=== PATIENT | male | born 1950 | race Caucasian/White ===

== ENCOUNTER → 2016-11-18 | Outpatient (CLI) | payer OTHER ==
[~2016-11-18] MED LIST: AMARYL PO; COREG12.5 M1; ESTER C PO; FLOMAX0.4 M1; JANUVIA100 MG PO; LEVEMIR FL100 UNIT/1 SUBQ; NIACIN500 M3; ZESTRIL2.5 MG PO; ZESTRIL5 MG PO
[2016-11-18 14:02] LABS: BUN/CREATININE RATIO 17.77; CALCIUM SERUM 9.6 mg/dL (8.4-10.2); CREATININE SERUM 0.9 mg/dL (0.6-1.4); GLOM FILT RATE Estimated 87.5 mL/min (>60); POTASSIUM 4.7 mmol/L (3.5-5.1)
== END | disposition home or self-care (01) ==
LOC: CAMB 12:01 → EDSTATUS 14:00
PROVIDERS: Surgery
DX: Z01.812 Encounter for preprocedural laboratory examination (principal); K40.90 Unilateral inguinal hernia, without obstruction or gangrene, not specified as recurrent
CPT/HCPCS: 36415; 80048

== ENCOUNTER → 2016-12-24 | Outpatient (CLI) | payer OTHER ==
[2016-12-24 15:16] LABS: CALCIUM SERUM 9.4 mg/dL (8.4-10.2); POTASSIUM 4.7 mmol/L (3.5-5.1)
== END | disposition home or self-care (01) ==
LOC: CAMB 11:13
PROVIDERS: Surgery
DX: Z01.812 Encounter for preprocedural laboratory examination (principal)
CPT/HCPCS: 36415; 80048

== ENCOUNTER 2016-12-30 05:26 | Observation (INO) | payer OTHER ==
[~2016-12-30] VITALS: Ht 182.9 cm; Wt 95.3 kg
--- NOTE | ~2016-12-30 | CR72 ---
[facility] A Service of [facility] & [facility] RADIOLOGY TEXT RESULTS PATIENT: ELVIRA GARSIA LOCATION: [place] [address] : [birth year] UNIT #: [id number] AGE: [address]: Geoffrey Valente MD SEX: M ORDER DR: [id number] [facility] [address] [place], [place] [address] [id number] I MR#: [id number] Acc #: [id number] NAME: ELVIRA GARSIA. : 1950 SEX: M STUDY DATE/TIME: 12/30/2016 20:18 UNIT: [facility] ROOM: [facility] STUDY DESCRIPTION: CR Chest Single View Portable Attending Physician: Geoffrey Valente M.D. Ordering Physician: Zulema Townsend M.D. Primary Care Physician: Maday Ibanez A.P.R.N. MEDICAL IMAGING REPORT This report is preliminary unless electronic signature is present EXAM Portable chest, 12/30/2016. HISTORY 66-year-old male with cough and congestion beginning today. Essential hypertension. COMPARISON Chest, 12/11/2016. FINDINGS Frontal chest demonstrates clear lungs. No pleural effusion or pneumothorax. Heart size and mediastinum are normal. Pulmonary vasculature normal. Left-sided AICD complex. IMPRESSION No acute cardiopulmonary findings. No change from 12/11/2016. Dictated by... Washington Ponce M.D. THIS IS AN ELECTRONICALLY VERIFIED REPORT Washington Ponce M.D. at 12/31/2016 5:10 PM JOHNNY/mary TD: 12/31/2016 09:44 JOB #: [id number] MEDICAL IMAGING REPORT Page 1 of 1 COPY
--- NOTE | ~2016-12-30 | OR ---
Unit #: [id number] #: [id number] Patient: ELVIRA GARSIA [id number] [address] [address] [id number] I MR#: [id number] NAME: ELVIRA GARSIA. ROOM: 562 Date of Procedure: 12/30/2016 Admission Date: 12/30/2016 Surgeon: Geoffrey Valente M.D. : 1950 Attending Physician: Geoffrey Valente M.D. Primary Care Physician: Maday Ibanez A.P.R.N. OPERATIVE REPORT PREOPERATIVE DIAGNOSIS Recurrent right inguinal hernia. POSTOPERATIVE DIAGNOSIS Recurrent right incarcerated indirect inguinal hernia. PROCEDURE PERFORMED Laparoscopic preperitoneal inguinal hernia repair of recurrent right incarcerated inguinal hernia. MANAGER HVAC None. ANESTHESIA General. ESTIMATED BLOOD LOSS Minimal. IV FLUIDS 800 crystalloid. COMPLICATIONS None. INDICATIONS FOR PROCEDURE The patient is a 66-year-old gentleman, who presents with a bulge in his right groin. He is status post right inguinal hernia repair with plug and patch technique. DESCRIPTION OF PROCEDURE The patient was taken to the operating theater and placed in supine position. General anesthesia was induced. The abdomen was prepped and draped. Infraumbilical incision was then made. A small incision was made in the anterior sheath. I created the preperitoneal space with blunt dissection. A Veress needle was placed intra-abdominally. The abdomen was insufflated to 15 mmHg with CO2. Under direct vision, I placed a 5-mm port. The patient was placed in Trendelenburg. I identified a right-sided indirect inguinal hernia. This was reduced with gentle external palpation. I then released the pneumoperitoneum. Using the AutoSuture balloon dissection system, I created the preperitoneal space on the right side only. I then placed two 5-mm ports in the midline. I Unit #: [id number] #: [id number] Patient: ELVIRA GARSIA dissected the lateral space. I identified the cord. The cord was then skeletonized and the hernia sac from the cord contents. There was adhesions to the previously placed plug. These were taken down. I then transected the hernia sac and ligated this with an Endoloop. I identified Shar ligament. I then placed a large 3DMax mesh into position. This was anteriolized and covered the direct and indirect spaces nicely. This was secured with the tacking device to Shar ligament as well as the lateral anterior musculature. Hemostasis was adequate. I then released the pneumopreperitoneum with care taken to avoid the peritoneum sliding posterior to the mesh. The ports were removed. The fascia was closed with 0 Vicryl and skin with 4-0 Vicryl. The patient tolerated the procedure well and sent to recovery room in good condition. Dictated by... Narcisa Milan/dimitri TD: 12/30/2016 15:47 JOB #: [id number] OPERATIVE REPORT Page 1 of 1 X Geoffrey Valente MD X PROCEDURE OPERATIVE NOTE
--- NOTE | ~2016-12-30 | CO ---
Unit #: [id number] #: [id number] Patient: ELVIRA GARSIA [id number] [address] [place], [place] [address] [id number] I MR#: [id number] NAME: ELVIRA GARSIA. ROOM: 562 Age: 66 Sex: M Admission Date: 12/30/2016 : 1950 Attending Physician: Geoffrey Valente M.D. Primary Care Physician: Maday Ibanez A.P.R.N. Consultation Date: 12/30/2016 CONSULTATION REPORT This patient is followed typically by Dr. Gregory Templeton. REASON FOR CONSULTATION Near syncope and low blood pressure. HISTORY OF PRESENT ILLNESS This is a very pleasant, 66-year-old, male, who was here today for scheduled right inguinal hernia repair per Dr. Valente. He has a past medical history of hypertension, hyperlipidemia, nonischemic cardiomyopathy, diabetes mellitus, paroxysmal atrial fibrillation, not on anticoagulation, status post Medtronic AICD pacemaker in 2011 and this is a biventricular pacemaker. He also has a chronic left bundle-branch block. We were asked to see the patient today secondary to post ambulation. He became extremely lightheaded and knees buckled with low blood pressure. The patient did not lose consciousness. He denies any complaints of chest pain, shortness of breath, or palpitations preceding this episode. It is noted he does have a large right groin hematoma. It appears to be extending upward at this time. The patient thus far has responded well to IV fluid boluses. His most recent hemoglobin was noted to be about 12. Dr. Valente has been notified of his current hematoma and is planning to take him back down for surgical reexploration today. PAST MEDICAL HISTORY 1. Hypertension. 2. Hyperlipidemia. 3. Diabetes mellitus type 2. 4. Paroxysmal atrial fibrillation, on anticoagulation. 5. Nonischemic cardiomyopathy. 6. Cardiac catheterization in 2013 showed no obstructive coronary artery disease. 7. In 09/2016, 2D echocardiogram showed EF of 45%. 8. Recent pacemaker battery replacement. 9. Chronic left bundle-branch block. 10. Nuclear med cardiac stress in 09/2016 showed no significant stress-induced ischemia, low intensity fixed defect at the apical cap. PAST SURGICAL HISTORY 1. History of an inguinal hernia repair. 2. History of AICD permanent pacemaker placement, Medtronic device. 3. Vasectomy. 4. History of tonsillectomy. FAMILY HISTORY Unit #: [id number] #: [id number] Patient: ELVIRA GARSIA Positive for hypertension in his mother. Otherwise, no known coronary artery disease. SOCIAL HISTORY The patient lives with his . He denies illicit drugs. He is a nonsmoker. He denies alcohol. ALLERGIES Sulfa, metformin, and Victoza. HOME MEDICATIONS 1. Carvedilol 12.5 mg p.o. b.i.d. 2. Amaryl 4 mg p.o. b.i.d. 3. Januvia 100 mg p.o. daily. 4. Flomax 0.4 mg nightly. 5. Ascorbic acid 500 mg p.o. daily. 6. Niacin 500 mg p.o. daily. 7. Zestril 5 mg p.o. nightly. REVIEW OF SYSTEMS A 12-point review of systems was conducted and is negative other than what was stated above in the HPI. PHYSICAL EXAMINATION CONSTITUTIONAL: This is a pleasant 66-year-old, male, who is status post right groin inguinal hernia repair. GENERAL: He is in no acute distress. HEENT: Head is atraumatic and normocephalic. Pupils are equal and round. NECK: Trachea is midline. No lymphadenopathy. No JVD. Carotid upstrokes are normal. CARDIAC: Regular rate and rhythm. Normal S1 and S2. No murmurs, gallops, or rubs. LUNGS: Clear to auscultation. No adventitious breath sounds. No rales. No rhonchi. No wheezes. ABDOMEN: Tender. Laparoscopic sites are present. Some bruising is noted. Firm on the right side. EXTREMITIES: Pulses are palpable. No clubbing, cyanosis, or edema. SKIN: Right groin has a significant hematoma, which appears to be extending upward, toward the abdominal area. NEUROLOGIC: He is awake, alert, and oriented. He follows command equally. He moves all extremities appropriately. DIAGNOSTIC STUDIES EKG shows paced rhythm. Imaging: No imaging at present for review. Hemoglobin 12.7, hematocrit 38.1, WBC 15.5, and platelet count 199. IMPRESSION 1. Near syncopal episode, questionable vasovagal versus volume depletion, secondary to bleeding. 2. Right groin large hematoma, status post inguinal hernia repair today. 3. History of nonischemic cardiomyopathy. 4. AICD permanent pacemaker Medtronic device, placed in 2011, recent battery and device replacement about 3 weeks ago at [facility]. 5. Normal Cardiolite stress test in 09/2016. 6. Chronic left bundle-branch block. Unit #: [id number] #: [id number] Patient: ELVIRA GARSIA 7. Normal coronary per H and P as the patient had cardiac cath in [place] in 2013. 8. In 09/2016, 2D echocardiogram showed an LVEF of 45%. PLAN We were asked to see the patient secondary to near syncopal episode and hypotension. The patient was up ambulating today and developed near syncope with weakness of his legs. Blood pressure was found to be as low as 79/44. It is notable he does have a large hematoma in the right groin, status post right inguinal hernia repair surgery today. He has thus far been given IV fluid boluses and has responded well. His current blood pressures up to 101/70. Stat hemoglobin and hematocrit were ordered and hemoglobin is noted to be stable at this time. At present, the patient's blood pressure medicines, which include carvedilol and lisinopril will be placed on hold. Dr. Valente has been notified of the patient's large hematoma by the nursing staff, and he is opted to take the patient back down for reexploration of his right groin site. The patient's EKG appears normal. He is in a paced rhythm. He denies any complaints of chest pain, palpitations, or syncope preceding the episode. We would recommend gentle fluids to keep systolic greater than 60. We will hold off on blood pressure medications for now. The patient is most likely bleeding and again is currently going back to surgery for re-exploration of the groin site. We will monitor for signs and symptoms of fluid overload. This was discussed with the patient and and they were agreeable. Further recommendations pending the outcome of the patient's re-exploration today. We will continue to monitor hemoglobin. Dictated by... Reta Tobar/modl TD: 12/31/2016 00:49 JOB #: [id number] CONSULTATION REPORT Page 1 of 1 X Karen Schuler APRN CONSULTATION REPORT
--- NOTE | ~2016-12-30 | OR ---
Unit #: [id number] #: [id number] Patient: ELVIRA GARSIA [id number] [address] [place], [place] [address] [id number] MR#: [id number] NAME: ELVIRA GARSIA. ROOM: 562 Date of Procedure: 12/30/2016 Admission Date: 12/30/2016 Surgeon: Geoffrey Valente M.D. : 1950 Attending Physician: Geoffrey Valente M.D. Primary Care Physician: Maday Ibanez A.P.R.N. OPERATIVE REPORT PREOPERATIVE DIAGNOSIS Abdominal wall hematoma. POSTOPERATIVE DIAGNOSIS Rectus sheath hematoma. PROCEDURES PERFORMED 1. Diagnostic laparoscopy. 2. Evacuation of rectus sheath hematoma. 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 ANESTHESIA General anesthesia. ESTIMATED BLOOD LOSS Minimal. IV FLUIDS 600 crystalloid. COMPLICATIONS None. INDICATIONS FOR PROCEDURE The patient is a 66-year-old gentleman, who is status post laparoscopic preperitoneal right inguinal hernia repair. He was noticed to have hypotension postoperatively and swelling of his right groin. On examination, this was felt to be a hematoma and I was concerned about this hematoma decompressing into the abdominal space and having active ongoing bleeding. He was thus resuscitated, presents to the operating room for evaluation. DESCRIPTION OF PROCEDURE The patient was taken to the operating theater and placed in supine position. General anesthesia was induced. Exam was prepped and draped. A 5-mm Optiview trocar was placed in the left upper quadrant without difficulty. The patient was placed in Trendelenburg. I identified what appeared to be a bilateral rectus sheath hematoma in the preperitoneal space. There was no active bleeding internally and this had not decompressed within the abdominal cavity. Thus, I made a small incision Unit #: [id number] #: [id number] Patient: ELVIRA GARSAI connecting the two 5-mm port sites. I got into the preperitoneal space. I was able to identify the mesh, which was in good position. I attempted to evacuate some of the hematoma, although this was difficult due to its diffuse nature. I did not see any active bleeding. I irrigated thoroughly with normal saline, closed the fascia with 0 Vicryl and skin with austin. The patient tolerated the procedure well and sent to recovery room in good condition. Dictated by... Narcisa Milan/dimitri TD: 12/30/2016 16:04 JOB #: [id number] OPERATIVE REPORT Page 1 of 1 X Geoffrey Valente MD X PROCEDURE OPERATIVE NOTE
--- NOTE | ~2016-12-30 | EKG ---
PATIENT: ELVIRA GARSIA UNIT #: [id number] Ventricular Rate: 60 BPM Atrial Rate: 60 BPM P-R Interval: 80 ms QRS Duration: 176 ms Q-T Interval: 488 ms QTC Calculation(Bezet): 488 ms P Chelsea: 74 degrees Calculated R Chelsea: -148 degrees Calculated T Chelsea: 69 degrees Diagnosis Line: AV sequential or dual chamber electronic pacemaker Diagnosis Line: No previous ECGs available Diagnosis Line: Confirmed by PASCUAL BARRERA MD ([id number]) on Diagnosis Line: 12/30/2016 1:29:09 PM INTERPRETING MD: BRUCE TOM
--- NOTE | ~2016-12-30 | CO ---
Unit #: [id number] #: [id number] Patient: ELVIRA GARSIA [id number] [address] [place], [place] [address] [id number] I MR#: [id number] NAME: ELVIRA GARSIA. ROOM: 43853 Age: 66 Sex: M Admission Date: 12/30/2016 : 1950 Attending Physician: Geoffrey Valente M.D. Primary Care Physician: Maday Ibanez A.P.R.N. Consultation Date: 12/30/2016 CONSULTATION REPORT REASON FOR CONSULTATION Diabetes. HISTORY OF PRESENT ILLNESS The patient is a 66-year-old male with past medical history of hypertension, hyperlipidemia, atrial fibrillation, left bundle branch block, diabetes, BPH, obstructive sleep apnea, who was admitted by Dr. Valente for elective right inguinal hernia repair. The patient states that he has diabetes that is managed by his primary care physician. He is on Januvia and glimepiride which he has been taking as prescribed. He states that his blood sugars are typically less than 200. Regarding the patient's other chronic medical conditions, he is status post pacemaker placement and has a history of atrial fibrillation. He also reports a history of left bundle branch block. He is followed by Dr. Templeton as an outpatient. He states that he did have obstructive sleep apnea in the past and was on CPAP; however, he lost about 80 pounds back in 2013 and is no longer on CPAP. Postoperatively, the patient has developed a hematoma in the right groin area. He denies any current chest pain. No difficulty breathing. He states that he was recently treated for "bronchitis" with an unknown antibiotic. He still has a persistent cough, but it has gotten better. He denies any vomiting or diarrhea. No urinary symptoms. Also of note, the patient's blood pressure dropped to 78/40 postoperatively. He has received A 500 mL normal saline bolus and blood pressure is most recently 101/54. Cardiology was also consulted. He is returning to the operating room due to development of postoperative hematoma. PAST MEDICAL HISTORY 1. Admission to a hospital in [place] in 2011 for hernia repair. 2. Diabetes. 3. Atrial fibrillation, status post pacemaker placement, not on chronic anticoagulation followed by Dr. Templeton. 4. Left bundle branch block. 5. Hypertension. 6. Hyperlipidemia. 7. BPH. 8. Obstructive sleep apnea, previously on CPAP. PAST SURGICAL HISTORY 1. Cardiac catheterization in 2002. 2. Hernia repair. Unit #: [id number] #: [id number] Patient: ELVIRA GARSIA SOCIAL HISTORY The patient lives with his . There is no tobacco or alcohol use. FAMILY HISTORY Notable for his mother having hypertension. ALLERGIES Allergies will need to be reviewed and verified. HOME MEDICATIONS 1. Glimepiride. 2. Januvia. 3. Flomax. 4. Ascorbic acid. 5. Niacin. 6. Zestril. 7. Coreg. Home medications will need to be reviewed and verified. REVIEW OF SYSTEMS A complete review of systems is negative except as indicated in the HPI. DIAGNOSTIC STUDIES LABORATORY: Basic metabolic panel from December 24, 2016, shows sodium of 131, glucose 257. Complete blood count from today notable for white blood cell count of 15.4, hemoglobin and hematocrit 12.7 and 38.1 respectively. CARDIOVASCULAR: EKG shows a paced rhythm with a rate of 60. PHYSICAL EXAMINATION VITAL SIGNS: Temperature 98.5, pulse 70, respirations 18, blood pressure 109/66 (but blood pressure dropped to 78/40, most recently 101/54). GENERAL: The patient is a male who is awake and alert in no acute distress. HEENT: The head is atraumatic. Mucous membranes are moist. NECK: Supple. Trachea is midline. CARDIOVASCULAR: Regular rate and rhythm. LUNGS: Relatively clear to auscultation bilaterally with no increased work of breathing. ABDOMEN: Soft. Bowel sounds are present in all four quadrants. GENITOURINARY: The right inguinal area demonstrates a bulging area that is currently covered with ice pack. EXTREMITIES: There is no pedal edema. NEUROLOGIC: The patient is awake and alert. He follows commands. PSYCHIATRIC: Mood and affect are normal. The patient is cooperative. SKIN: Skin of examined areas is warm and dry. ASSESSMENT The patient is a 66-year-old male with: 1. Status post right inguinal hernia repair, possibly complicated by postoperative hematoma. 2. Hypotension: The patient responded to a normal saline bolus. Blood pressure is currently 101/54. STAT hemoglobin and hematocrit has been ordered but is pending at the time of this dictation. Hemoglobin was 12.7 today. 3. Uncontrolled diabetes: The patient's blood sugar was 257 on December 24, 2016. I do not see a recent Accu-Chek today. Unit #: [id number] #: [id number] Patient: ELVIRA GARSIA 4. Leukocytosis concerning for possible infection. The patient reports a cough. 5. History of atrial fibrillation, status post pacemaker placement. 6. History of left bundle branch block. 7. Hyperlipidemia. 8. Benign prostatic hypertrophy. 9. Obstructive sleep apnea, no longer on CPAP. PLAN 1. Regarding diabetes, I have ordered hemoglobin A1c as well as low-dose sliding scale insulin with Accu-Cheks. 2. Regarding hypotension, the patient responded to a fluid bolus. He possibly has a history of cardiomyopathy with unknown ejection fraction. I have ordered normal saline at 75 mL/hr. Antihypertensive medications have been held by cardiology. Cardiology has also seen the patient. The patient is returning to surgery for possible evacuation of hematoma. I have ordered serial hemoglobin and hematocrit and will continue to monitor closely. 3. The patient also has leukocytosis. Infection will need to be ruled out. I have ordered blood cultures as well as chest x-ray and urinalysis. I will continue to monitor the patient closely. 4. Regarding obstructive sleep apnea, the patient is on obstructive sleep apnea protocol. Thank you very much for the consultation. We will follow the patient along closely with you. Dictated by... Zulema Townsend M.D. DARCIE/poly TD: 12/30/2016 14:20 JOB #: [id number] CONSULTATION REPORT Page 1 of 1 X Zulema Townsend MD X CONSULTATION REPORT
[~2016-12-30 05:26] MED LIST changes: -AMARYL PO; -COREG12.5 M1; -ESTER C PO; -FLOMAX0.4 M1; -JANUVIA100 MG PO; -LEVEMIR FL100 UNIT/1 SUBQ; -NIACIN500 M3; -ZESTRIL5 MG PO
[2016-12-30] MEDS ORDERED: ZESTRIL5 MG PO (11:48)
[2016-12-30 12:31] LABS: HEMATOCRIT 38.1 % (38.0-50.0); HEMOGLOBIN 12.7 gm/dL (13.0-16.0); MEAN CELL VOLUME 91.3 FL (83-96); MEAN CORPUSCULAR HEMOGLOBIN 30.3 PG (28-34); MEAN CORPUSCULAR HGB CONC 33.2 g/dL (30-36); RED BLOOD COUNT 4.18 X10e (3.90-5.60); RED CELL DISTRIBUTION WIDTH 12.8 % (11.0-15.5); WHITE BLOOD COUNT 15.5 X10e3 (4.0-10.5)
[2016-12-30] MEDS ORDERED: COREG12.5 M1 (12:45)
[2016-12-30] MEDS ORDERED: AMARYL PO (12:46)
[2016-12-30] MEDS ORDERED: FLOMAX0.4 M1 (12:47)
[2016-12-30] MEDS ORDERED: ESTER C PO (12:47)
[2016-12-30] MEDS ORDERED: JANUVIA100 MG PO (12:47)
[2016-12-30] MEDS ORDERED: NIACIN500 M3 (12:48)
[2016-12-30 15:44] LABS: BASOPHIL% 0.2 % (0-2.5); EOSINOPHIL% 0.1 % (0.0-7.0); HEMATOCRIT 37.5 % (38.0-50.0); HEMOGLOBIN 12.5 gm/dL (13.0-16.0); LYMPHOCYTE# 0.7 X10e3 (1.0-3.5); LYMPHOCYTE% 4.4 % (17.0-45.0); MEAN CELL VOLUME 91.6 FL (83-96); MEAN CORPUSCULAR HEMOGLOBIN 30.7 PG (28-34); MEAN CORPUSCULAR HGB CONC 33.5 g/dL (30-36); MEAN PLATELET VOLUME 8.6 FL (6.5-11.5); MONOCYTE# 0.8 X10e3 (0-1.0); NEUTROPHIL% 90.3 % (40-75); PLATELET COUNT 182 X10e3 (140-420); RED BLOOD COUNT 4.09 X10e (3.90-5.60); RED CELL DISTRIBUTION WIDTH 12.9 % (11.0-15.5); WHITE BLOOD COUNT 15.5 X10e3 (4.0-10.5)
[2016-12-30 15:45] LABS: DIFF IND YES
[2016-12-30 16:01] LABS: PLATELET ESTIMATE NORMAL (NORMAL)
[2016-12-30 17:02] LABS: HEMOGLOBIN 12.5 gm/dL (13.0-16.0)
[2016-12-30 17:46] LABS: PROTHROMBIN TIME (PATIENT) 10.9 SECONDS (10.0-11.7)
[2016-12-30 17:57] LABS: ALBUMIN SERUM 3.5 g/dL (3.5-5.0); BILIRUBIN,TOTAL 1.3 mg/dL (0.2-2.0); BUN/CREATININE RATIO 17.27; CALCIUM SERUM 8.4 mg/dL (8.4-10.2); CREATININE SERUM 1.1 mg/dL (0.6-1.4); GLOM FILT RATE Estimated 68.6 mL/min (>60); POTASSIUM 5.1 mmol/L (3.5-5.1); PROTEIN TOTAL SERUM 5.6 g/dL (6.0-8.3)
[2016-12-30 21:12] LABS: URINE APPEARANCE CLEAR; URINE BILIRUBIN NEG (NEG); URINE BLOOD 2+ (NEG); URINE COLOR YELLOW; URINE GLUCOSE >1000 MG/DL (NEG); URINE KETONE 2+ (NEG); URINE LEUKOCYTE ESTERASE NEG (NEG); URINE NITRATE NEG (NEG); URINE PROTEIN NEG (NEG); URINE SPECIFIC GRAVITY 1.036 (1.003-1.035); URINE UROBILINOGEN 0.2 MG/DL (NEG)
[2016-12-30 21:14] LABS: URBCS1 AUWI 50-100 /[HPF] (0-2); URINE BACTERIA AUWI NEG (NEGATIVE); URINE SQUAMOUS EPITHELIAL CELL OCC /[HPF]
[2016-12-30 21:22] LABS: U HYALINE CASTS AUWI 0-2 /[LPF]
[2016-12-31 06:30] LABS: BASOPHIL% 0.3 % (0-2.5); EOSINOPHIL% 0.2 % (0.0-7.0); HEMATOCRIT 32.9 % (38.0-50.0); HEMOGLOBIN 11.2 gm/dL (13.0-16.0); MEAN CELL VOLUME 91.2 FL (83-96); MEAN CORPUSCULAR HEMOGLOBIN 31.1 PG (28-34); MEAN CORPUSCULAR HGB CONC 34.1 g/dL (30-36); MEAN PLATELET VOLUME 9.3 FL (6.5-11.5); MONOCYTE# 1.2 X10e3 (0-1.0); MONOCYTE% 9.9 % (3.0-12.0); NEUTROPHIL# 10.2 X10e3 (1.5-7.1); NEUTROPHIL% 81.6 % (40-75); PLATELET COUNT 182 X10e3 (140-420); WHITE BLOOD COUNT 12.5 X10e3 (4.0-10.5)
[2016-12-31 06:34] LABS: DIFF IND NO
[2016-12-31 06:57] LABS: CALCIUM SERUM 8.4 mg/dL (8.4-10.2); POTASSIUM 4.4 mmol/L (3.5-5.1)
[2016-12-31 13:44] LABS: HEMATOCRIT 32.4 % (38.0-50.0); HEMOGLOBIN 11.1 gm/dL (13.0-16.0); MEAN CELL VOLUME 90.8 FL (83-96); MEAN CORPUSCULAR HEMOGLOBIN 31.2 PG (28-34); MEAN CORPUSCULAR HGB CONC 34.4 g/dL (30-36); MEAN PLATELET VOLUME 8.4 FL (6.5-11.5); RED BLOOD COUNT 3.56 X10e (3.90-5.60); RED CELL DISTRIBUTION WIDTH 12.9 % (11.0-15.5); WHITE BLOOD COUNT 13.7 X10e3 (4.0-10.5)
[2017-01-01 05:39] LABS: HEMATOCRIT 28.4 % (38.0-50.0); HEMOGLOBIN 9.6 gm/dL (13.0-16.0); MEAN CELL VOLUME 90.6 FL (83-96); MEAN CORPUSCULAR HEMOGLOBIN 30.6 PG (28-34); MEAN CORPUSCULAR HGB CONC 33.8 g/dL (30-36); MEAN PLATELET VOLUME 8.6 FL (6.5-11.5); RED BLOOD COUNT 3.13 X10e (3.90-5.60); WHITE BLOOD COUNT 12.2 X10e3 (4.0-10.5)
[2017-01-01 06:27] LABS: BILIRUBIN,TOTAL 0.9 mg/dL (0.2-2.0); CALCIUM SERUM 8.4 mg/dL (8.4-10.2); CREATININE SERUM 0.9 mg/dL (0.6-1.4); GLOM FILT RATE Estimated 87.5 mL/min (>60); POTASSIUM 4.1 mmol/L (3.5-5.1); PROTEIN TOTAL SERUM 5.1 g/dL (6.0-8.3)
[2017-01-01] MEDS ORDERED: LEVEMIR FL100 UNIT/1 SUBQ (12:08)
== END 2017-01-01 13:00 | disposition home or self-care (01) | DRG 920 ==
LOC: CSUR 05:26 → CPACUOF 12:34 → C5B 12:34
PROVIDERS: Family Medicine; Internal Medicine; Surgery
DX: L76.31 Postprocedural hematoma of skin and subcutaneous tissue following a dermatologic procedure (principal); K40.31 Unilateral inguinal hernia, with obstruction, without gangrene, recurrent; I10 Essential (primary) hypertension; E11.65 Type 2 diabetes mellitus with hyperglycemia; E78.5 Hyperlipidemia, unspecified; I42.8 Other cardiomyopathies; I48.0 Paroxysmal atrial fibrillation; N40.0 Benign prostatic hyperplasia without lower urinary tract symptoms; R55 Syncope and collapse; I44.7 Left bundle-branch block, unspecified; G47.33 Obstructive sleep apnea (adult) (pediatric); I95.9 Hypotension, unspecified; D72.829 Elevated white blood cell count, unspecified; M19.90 Unspecified osteoarthritis, unspecified site; Z88.2 Allergy status to sulfonamides; Z79.84 Long term (current) use of oral hypoglycemic drugs; Z79.899 Other long term (current) drug therapy; Z98.52 Vasectomy status; Z98.890 Other specified postprocedural states; Z95.810 Presence of automatic (implantable) cardiac defibrillator; Y83.8 Other surgical procedures as the cause of abnormal reaction of the patient, or of later complication, without mention of misadventure at the time of the procedure
CPT/HCPCS: 71010; 80048; 80053; 81003; 82947; 83036; 85014; 85018; 85025; 85027; 85610; 86850; 86900; 86901; 87040; 87070; 87086; 87205; 93005; 94760; 94761; 96374; 96376; C1781; G0378; J0330; J0690; J1644; J1815; J2250; J2405; J2710; J3010

== ENCOUNTER 2017-01-05 13:04 | Emergency (ER) | payer OTHER ==
[~2017-01-05] VITALS: Ht 182.9 cm; Wt 90.7 kg
[~2017-01-05 13:04] MED LIST changes: +AMARYL PO; +COREG12.5 M1; +ESTER C PO; +FLOMAX0.4 M1; +JANUVIA100 MG PO; +LEVEMIR FL100 UNIT/1 SUBQ; +NIACIN500 M3; +ZESTRIL5 MG PO
[2017-01-05 14:18] LABS: BASOPHIL% 0.5 % (0-2.5); EOSINOPHIL# 0.2 X10e3 (0-0.7); HEMOGLOBIN 10.3 gm/dL (13.0-16.0); LYMPHOCYTE# 0.9 X10e3 (1.0-3.5); LYMPHOCYTE% 10.2 % (17.0-45.0); MEAN CELL VOLUME 91.5 FL (83-96); MEAN CORPUSCULAR HEMOGLOBIN 31.3 PG (28-34); MEAN CORPUSCULAR HGB CONC 34.2 g/dL (30-36); MEAN PLATELET VOLUME 7.8 FL (6.5-11.5); MONOCYTE# 1.1 X10e3 (0-1.0); NEUTROPHIL% 75.3 % (40-75); PLATELET COUNT 234 X10e3 (140-420); RED BLOOD COUNT 3.27 X10e (3.90-5.60); RED CELL DISTRIBUTION WIDTH 13.2 % (11.0-15.5); WHITE BLOOD COUNT 9.2 X10e3 (4.0-10.5)
[2017-01-05 14:21] LABS: DIFF IND NO
== END 2017-01-05 15:15 | disposition home or self-care (01) ==
LOC: CED 13:04
PROVIDERS: Emergency Medicine
DX: K91.840 Postprocedural hemorrhage of a digestive system organ or structure following a digestive system procedure (principal); E11.9 Type 2 diabetes mellitus without complications; I10 Essential (primary) hypertension; Z88.2 Allergy status to sulfonamides; Z79.84 Long term (current) use of oral hypoglycemic drugs; Z88.8 Allergy status to other drugs, medicaments and biological substances; Z79.899 Other long term (current) drug therapy
CPT/HCPCS: 36415; 85025; 99283